=== PATIENT | female | born 1955 ===

== ENCOUNTER 2017-10-17 12:12 | Emergency (ER) | payer MEDICAID ==
[2017-10-17 12:46] VITALS: BP 161/70; PULSE 79; RESP 18; TEMP 98.9; O2SAT 98
--- NOTE | 2017-10-17 13:22 | ED PDOC ---
HPI: Back Time Seen by Provider: 10/17/17 13:00 Chief Complaint (Nursing): Back Pain Chief Complaint (Provider): back pain History Per: Patient (62 y/o female here with ongoing back pain and right leg shooting pain since fall in summer. Patient states she was seen in ED in past with xry evaluation negative. Has seen pmd and given flexeril ibuprofen but notes persistent pain. ) Past Medical History Reviewed: Historical Data, Nursing Documentation, Vital Signs Vital Signs: Last Vital Signs Temp 98.9 F 10/17/17 12:44 Pulse 79 10/17/17 12:44 Resp 18 10/17/17 12:44 BP 161/70 H 10/17/17 12:44 Pulse Ox 98 10/17/17 12:44 - Medical History PMH: Back Problems, Schizophrenia - Surgical History Surgical History: Cholecystectomy (09/2017) - Family History Family History: States: No Known Family Hx - Immunization History Hx Influenza Vaccination: Yes - Home Medications Home Medications: Ambulatory Orders Medication Instructions Recorded Naproxen 500 mg PO BID PRN #14 tablet 10/17/17 diaZEpam [Valium] 5 mg PO Q6 PRN #5 tab 10/17/17 - Allergies Allergies/Adverse Reactions: Allergies Allergy/AdvReac Type Severity Reaction Status Date / Time No Known Allergies Allergy Verified 10/17/17 12:44 Review of Systems ROS Statement: Except As Marked, All Systems Reviewed And Found Negative Musculoskeletal: Positive for: Back Pain Physical Exam - Reviewed Nursing Documentation Reviewed: Yes Vital Signs Reviewed: Yes - Physical Exam Appears: Positive for: Well, Non-toxic, No Acute Distress Head Exam: Positive for: ATRAUMATIC, NORMAL INSPECTION, NORMOCEPHALIC Skin: Positive for: Normal Color, Warm, DRY Eye Exam: Positive for: EOMI, Normal appearance, PERRL ENT: Positive for: Normal ENT Inspection Neck: Positive for: Normal, Painless ROM Cardiovascular/Chest: Positive for: Regular Rate, Rhythm Respiratory: Positive for: CNT, Normal Breath Sounds Gastrointestinal/Abdominal: Positive for: Normal Exam, Bowel Sounds, Soft Back: Positive for: Normal Inspection, Vertebral Tenderness (right paralumbar tenderness; (-) sciatic raise.) Extremity: Positive for: Normal ROM Neurologic/Psych: Positive for: Alert, Oriented - ECG O2 Sat by Pulse Oximetry: 98 - Progress ED Course And Treament: Patient notes pain anterior leg right with walking. Will write valium/naproxen and advise f/u with pmd Disposition - Clinical Impression Clinical Impression: Back strain, Johns splints - Patient ED Disposition Is Patient to be Admitted: No - Disposition Disposition: Routine/Home Disposition Time: 13:22 Condition: FAIR Prescriptions: diaZEpam [Valium] 5 mg PO Q6 PRN #5 tab PRN Reason: Muscle Spasm Naproxen 500 mg PO BID PRN #14 tablet PRN Reason: Pain, Moderate (4-7) Instructions: Johns Splints, Muscle Strain, Low Back Pain (DC)
== END 2017-10-17 14:14 | disposition home or self-care (01) ==
LOC: EDBD 12:12 → H.ER 12:12
DX: M54.9 Dorsalgia, unspecified (principal); M76.811 Anterior tibial syndrome, right leg

== ENCOUNTER 2018-02-06 13:22 | Emergency (ER) | payer MEDICAID ==
[2018-02-06 13:23] VITALS: BMI 26.4
[2018-02-06 13:56] VITALS: O2SAT 99
--- NOTE | 2018-02-06 16:00 | ED PDOC ---
HPI: Back Time Seen by Provider: 02/06/18 14:33 Chief Complaint (Nursing): Back Pain Chief Complaint (Provider): Back Pain History Per: Patient History/Exam Limitations: no limitations Onset/Duration Of Symptoms: Hrs Current Symptoms Are (Timing): Still Present Quality Of Discomfort: "Pain" Additional Complaint(s): 61 y/o female with a history of sciatica presents to the ED for lower back pain. Patient reports the pain began last night and worsened today. She states she has chronic lower back pain; states she was diagnosed with sciatica on the right side 6 years ago. Denies taking any medication prior to arrival for her symptoms. She denies chest pain, abdominal pain, nausea, vomiting, SOB, cough, urinary symptoms, incontinence, saddle anesthesia, fever, chills, weakness, numbness, recent trauma, or falls. Of note, patient had elevated blood pressure in triage. She denies a history of HTN and states her blood pressure normally elevates when she is in the hospital/ being evaluated. (-) headache (-) visual changes (-) dizziness (-) palpitations PMD: Dr. Ramirez Past Medical History Reviewed: Historical Data, Nursing Documentation, Vital Signs Vital Signs: Last Vital Signs Temp 97.0 F L 02/06/18 13:54 Pulse 79 02/06/18 13:54 Resp 18 02/06/18 13:54 BP 190/91 H 02/06/18 13:54 Pulse Ox 99 02/06/18 13:54 - Medical History PMH: Anxiety, Arthritis, Asthma, Back Problems, Bipolar Disorder, Gastritis Other PMH: sciatica - Surgical History Surgical History: Cholecystectomy (09/2017) - Family History Family History: States: Unknown Family Hx - Social History Current smoker - smoking cessation education provided: No Ex-Smoker (has not smoked in the last 12 months): No Alcohol: None Drugs: Denies - Home Medications Home Medications: Ambulatory Orders Medication Instructions Recorded Benztropine [Cogentin] 1 mg PO BID 08/15/16 Divalproex [Depakote DR] 500 mg PO BID 08/15/16 FLUoxetine [Prozac] 20 mg PO BID 08/15/16 fluPHENAZine [Prolixin] 2.5 mg PO BID 08/15/16 Albuterol HFA [Ventolin HFA 90 1 puff IH Q4 PRN #1 inh 12/01/16 mcg/actuation (8 g)] Ibuprofen [Motrin] 600 mg PO Q6 PRN #15 tab 04/03/17 oxyCODONE/Acetaminophen [Percocet 1 tab PO Q4 PRN 09/13/17 5/325 mg Tab] Polyethylene Glycol 3350 [Miralax] 17 gm PO DAILY PRN #1 bottle 09/18/17 traMADol [Ultram] 50 mg PO TID PRN #15 tab 09/18/17 Naproxen 500 mg PO BID PRN #14 tablet 10/17/17 diaZEpam [Valium] 5 mg PO Q6 PRN #5 tab 10/17/17 Naproxen 500 mg PO BID PRN #20 ect 11/24/17 Polyethylene Glycol 3350 [Miralax] 17 gm PO DAILY 5 Days ml 11/24/17 Meloxicam [Mobic] 15 mg PO DAILY PRN #14 tab 02/06/18 Methocarbamol [Robaxin] 500 mg PO BID PRN #10 tab 02/06/18 - Allergies Allergies/Adverse Reactions: Allergies Allergy/AdvReac Type Severity Reaction Status Date / Time No Known Allergies Allergy Verified 10/17/17 12:44 Review of Systems ROS Statement: Except As Marked, All Systems Reviewed And Found Negative Constitutional: Negative for: Fever, Chills, Other (recent trauma or fall) Cardiovascular: Negative for: Chest Pain Respiratory: Negative for: Cough, Shortness of Breath Gastrointestinal: Negative for: Nausea, Vomiting, Abdominal Pain Genitourinary Female: Negative for: Incontinence, Other (urinary symptoms) Musculoskeletal: Positive for: Back Pain (lower radiating to lower right extremity) Neurological: Negative for: Weakness, Numbness, Other (saddle anesthesia) Physical Exam - Reviewed Nursing Documentation Reviewed: Yes Vital Signs Reviewed: Yes - Physical Exam Comments: GENERAL APPEARANCE: Patient is awake, alert, oriented x 3, in no acute distress. Resting comfortably, ambulatory in ED. SKIN: Warm, dry; (-) cyanosis. EYES: (-) conjunctival pallor. NECK: Supple, FROM (-) tenderness, (-) stiffness, (-) lymphadenopathy. CHEST AND RESPIRATORY: (-) rales, (-) rhonchi, (-) wheezes; breath sounds equal bilaterally. Speaking in full sentences. HEART AND CARDIOVASCULAR: (-) irregularity; (-) murmur, (-) gallop. ABDOMEN AND GI: Soft; (-) tenderness; (-) palpable mass (-) distention (-) guarding. BACK: (+) right paralumbar and sciatic notch tenderness, (-) direct bony tenderness, (-) deformity (+) straight leg on right is 15 degrees (-) on left. ( -) CVA tenderness EXTREMITIES: (+) steady gait (-) deformity. Distal pulses good bilaterally. NEURO AND PSYCH: Mental status as above. Intact sensation bilaterally; normal strength in extension of the knees, plantar and dorsiflexion of the toes. (-) distal NV deficit - ECG O2 Sat by Pulse Oximetry: 99 (RA) Pulse Ox Interpretation: Normal Medical Decision Making Medical Decision Making: Time: 13:54 Impression: acute on chronic back pain/sciatica, elevated BP reading Plan: * Naproxen 500 mg PO * Ultram 50 mg PO * Valium 5 mg PO (Patient is not driving home) * Re-evaluation 1650 Repeat HR: 77 Repeat BP: 154/82 Patient advised to follow up with PMD for further evaluation of blood pressure. On re-evaluation, patient reports improvement of symptoms. Ambulatory in ED with a steady, unassisted gait. On exam, patient remains AAOx3, in no acute distress. Neck is supple, lungs CTA, cardiac RRR, abdomen is soft and non-tender , neuro exam shows no focal findings. VSS, stable for discharge. Diagnostic results d/w the patient in great detail. Dx of acute on chronic back pain, sciatica, elevated blood pressure d/w the patient. Based on history, exam and diagnostic results plan will be for discharge and outpatient follow up. Advised to follow up with primary care physician in 1-2 days without fail. Advised to take medication as prescribed. Return to the emergency room at any time for any new or worsening symptoms. Patient states she fully agrees with and understands discharge instructions. States that she agrees with the plan and disposition. Verbalized and repeated discharge instructions and plan. I have given the patient opportunity to ask any additional questions. Scribe Attestation: Documented by Adam Vizcaino acting as a scribe ELLE Ovalle MD Attestation: All medical record entries made by the Scribe were at my direction and personally dictated by me. I have reviewed the chart and agree that the record accurately reflects my personal performance of the history, physical exam, medical decision making, and the department course for this patient. I have also personally directed, reviewed, and agree with the discharge instructions and disposition. Disposition - Clinical Impression Clinical Impression: Low back pain, Sciatica, Elevated blood pressure reading - Patient ED Disposition Is Patient to be Admitted: No Counseled Patient/Family Regarding: Diagnosis, Need For Followup, Rx Given - Disposition Disposition: Routine/Home Disposition Time: 16:49 Condition: IMPROVED Additional Instructions: FOLLOW UP WITH PMD FOR ADDITIONAL PAIN MANAGEMENT AND EVALUATION OF BLOOD PRESSURE. RETURN TO ED WITH ANY NEW OR WORSENING SYMPTOMS. Prescriptions: Meloxicam [Mobic] 15 mg PO DAILY PRN #14 tab PRN Reason: Pain, Moderate (4-7) Methocarbamol [Robaxin] 500 mg PO BID PRN #10 tab PRN Reason: Muscle Spasm Instructions: Sciatica, High Blood Pressure in Adults, Low Back Pain (DC), Prehypertension, Sciatica Exercises, Hypertension (ED) Forms: [employer] (Swedish) Print Language: UZBEK - POA Present On Arrival: None
[2018-02-06] MEDS ORDERED: Naproxen 500 MG TAB PO ONE (16:03)
[2018-02-06] MEDS: Naproxen 500 MG TAB PO STA (16:05)
[2018-02-06 17:05] VITALS: BP 154/82; PULSE 77; RESP 15; TEMP 98.2
== END 2018-02-06 17:05 | disposition home or self-care (01) ==
LOC: H.ER 13:22
DX: M54.5 Low back pain (principal); M54.31 Sciatica, right side; I10 Essential (primary) hypertension

== ENCOUNTER 2018-05-02 06:36 | Emergency (ER) | payer MEDICAID ==
[2018-05-02 06:36] VITALS: BMI 26.4
[2018-05-02 06:50] VITALS: BP 125/74; PULSE 75; RESP 16; TEMP 98.6; O2SAT 98
--- NOTE | 2018-05-02 07:47 | ED PDOC ---
HPI: General Adult Time Seen by Provider: 05/02/18 07:00 Chief Complaint (Nursing): Abnormal Skin Integrity Chief Complaint (Provider): Rash, sore throat History Per: Patient History/Exam Limitations: no limitations Onset/Duration Of Symptoms: Days (3) Have you had recent travel within the past 21 days to any of the following countries: [place], [place], [place] or [place]?: No Current Symptoms Are (Timing): Still Present Additional History Per: Patient Additional Complaint(s): 62yo female, history of anxiety, depression and schizophrenia, comes to ER for evaluation of an itchy rash present diffusely on her body x 3 days as well as a sore throat x 3 days. Patient denies using any new lotions, soaps, or detergent and states she did not take any medications for her rash. She was seen by her PMD Dr. Peraza at [facility] and states she has to follow up with an rear load truck driver for testing. she states this rash resolved at this time.. She denies any fever, chills, chest pain, shortness of breath, and offers no other complaints. Past Medical History Reviewed: Historical Data, Nursing Documentation, Vital Signs Vital Signs: Last Vital Signs Temp 98.6 F 05/02/18 06:46 Pulse 75 05/02/18 06:46 Resp 16 05/02/18 06:46 BP 125/74 05/02/18 06:46 Pulse Ox 98 05/02/18 08:52 - Medical History PMH: Anxiety, Arthritis, Asthma, Back Problems, Bipolar Disorder, Depression, Gastritis, Schizophrenia Denies: Kidney Stones, Chronic Kidney Disease - Surgical History Surgical History: Cholecystectomy (09/2017) Denies: Appendectomy - Family History Family History: States: No Known Family Hx - Living Arrangements Living Arrangements: Alone - Immunization History Hx Influenza Vaccination: Yes - Home Medications Home Medications: Ambulatory Orders Medication Instructions Recorded Benztropine [Cogentin] 1 mg PO BID 08/15/16 Divalproex [Depakote DR] 500 mg PO BID 08/15/16 FLUoxetine [Prozac] 20 mg PO BID 08/15/16 fluPHENAZine [Prolixin] 2.5 mg PO BID 08/15/16 Albuterol HFA [Ventolin HFA 90 1 puff IH Q4 PRN #1 inh 12/01/16 mcg/actuation (8 g)] Ibuprofen [Motrin] 600 mg PO Q6 PRN #15 tab 04/03/17 oxyCODONE/Acetaminophen [Percocet 1 tab PO Q4 PRN 09/13/17 5/325 mg Tab] Polyethylene Glycol 3350 [Miralax] 17 gm PO DAILY PRN #1 bottle 09/18/17 traMADol [Ultram] 50 mg PO TID PRN #15 tab 09/18/17 Naproxen 500 mg PO BID PRN #14 tablet 10/17/17 diaZEpam [Valium] 5 mg PO Q6 PRN #5 tab 10/17/17 Naproxen 500 mg PO BID PRN #20 ect 11/24/17 Polyethylene Glycol 3350 [Miralax] 17 gm PO DAILY 5 Days ml 11/24/17 Meloxicam [Mobic] 15 mg PO DAILY PRN #14 tab 02/06/18 Methocarbamol [Robaxin] 500 mg PO BID PRN #10 tab 02/06/18 - Allergies Allergies/Adverse Reactions: Allergies Allergy/AdvReac Type Severity Reaction Status Date / Time No Known Allergies Allergy Verified 05/02/18 06:45 Review of Systems ROS Statement: Except As Marked, All Systems Reviewed And Found Negative Constitutional: Negative for: Fever, Chills ENT: Positive for: Throat Pain Cardiovascular: Negative for: Chest Pain Respiratory: Positive for: Cough. Negative for: Shortness of Breath Skin: Positive for: Rash Physical Exam - Reviewed Nursing Documentation Reviewed: Yes Vital Signs Reviewed: Yes - Physical Exam Appears: Positive for: Non-toxic, No Acute Distress Head Exam: Positive for: ATRAUMATIC, NORMAL INSPECTION, NORMOCEPHALIC Skin: Positive for: Warm, Rash (healing, crusty rash noted diffusely to bilateral forearms and on trunk. ) Eye Exam: Positive for: EOMI, Normal appearance, PERRL ENT: Positive for: Pharyngeal Erythema (minimal). Negative for: Tonsillar Exudate, Tonsillar Swelling Neck: Positive for: Normal, Painless ROM, Supple Cardiovascular/Chest: Positive for: Regular Rate, Rhythm Respiratory: Positive for: Normal Breath Sounds Gastrointestinal/Abdominal: Positive for: Normal Exam Back: Positive for: Normal Inspection Extremity: Positive for: Normal ROM. Negative for: Pedal Edema, Deformity Neurologic/Psych: Positive for: Alert, Oriented. Negative for: Motor/Sensory Deficits - ECG O2 Sat by Pulse Oximetry: 98 (RA) Pulse Ox Interpretation: Normal Medical Decision Making Medical Decision Making: Impression: Urticaria, sore throat rule out strep Plan: * Rapid strep Time: 0851 Rapid strep test is negative. pt states anjel rash doesnt bother her and is healing she will follow up as outpt. Patient informed of findings and will be discharged home. Patient instructed to follow up with rear load truck driver as scheduled and to follow up with PMD in 2-3 days. Scribe Attestation: Documented by Aubree Hummel, acting as a scribe for Jamel Way MD. Provider Scribe Attestation: All medical record entries made by the Scribe were at my direction and personally dictated by me. I have reviewed the chart and agree that the record accurately reflects my personal performance of the history, physical exam, medical decision making, and the department course for this patient. I have also personally directed, reviewed, and agree with the discharge instructions and disposition. Disposition - Clinical Impression Clinical Impression: Rash - Patient ED Disposition Is Patient to be Admitted: No Counseled Patient/Family Regarding: Studies Performed, Diagnosis, Need For Followup - Disposition Disposition: Routine/Home Disposition Time: 08:30 Condition: IMPROVED Additional Instructions: follow up with your primary doctor in 1-2 days return to the ED with any worsening or concerning symptoms Instructions: Skin Rash (DC) Forms: [employer] (Guyanese)
== END 2018-05-02 09:46 | disposition home or self-care (01) ==
LOC: H.ER 06:36
DX: L50.9 Urticaria, unspecified (principal)

== ENCOUNTER 2018-06-17 07:19 | Emergency (ER) | payer MEDICAID ==
[2018-06-17 07:19] VITALS: BMI 26.4
[2018-06-17 07:34] VITALS: PULSE 79; RESP 18; TEMP 98.2; O2SAT 97
--- NOTE | 2018-06-17 07:50 | ED PDOC ---
HPI: General Adult Time Seen by Provider: 06/17/18 07:26 Chief Complaint (Provider): Rash History Per: Patient History/Exam Limitations: no limitations Onset/Duration Of Symptoms: Days Have you had recent travel within the past 21 days to any of the following countries: [place], [place], [place] or [place]?: No Current Symptoms Are (Timing): Still Present Additional History Per: Patient Additional Complaint(s): 62yo female, history of anxiety, depression and schizophrenia, comes to ER for evaluation of an itchy rash present diffusely on her body x 3 days. Patient denies using any new lotions, soaps, or detergent and states she did not take any medications for her rash. She also denies any bug bites or other environmental factors contributing to the rash. She denies any fever, chills, chest pain, shortness of breath, throat swelling, nausea, vomiting or diarrhea. She states she has not followed up with an business analytics faculty member. No other complaints. PMD: [facility] Past Medical History Reviewed: Historical Data, Nursing Documentation, Vital Signs Vital Signs: Last Vital Signs Temp 98.2 F 06/17/18 07:33 Pulse 79 06/17/18 07:33 Resp 18 06/17/18 07:33 BP 143/80 06/17/18 07:33 Pulse Ox 97 06/17/18 07:33 - Medical History PMH: Anxiety, Arthritis, Asthma, Back Problems, Bipolar Disorder, Depression, Gastritis, Schizophrenia Denies: Kidney Stones, Chronic Kidney Disease - Surgical History Surgical History: Cholecystectomy (09/2017) Denies: Appendectomy - Family History Family History: States: No Known Family Hx - Social History Current smoker - smoking cessation education provided: No Alcohol: None Drugs: Denies - Immunization History Hx Influenza Vaccination: Yes - Home Medications Home Medications: Ambulatory Orders Medication Instructions Recorded Benztropine [Cogentin] 1 mg PO BID 08/15/16 Divalproex [Depakote DR] 500 mg PO BID 08/15/16 FLUoxetine [Prozac] 20 mg PO BID 08/15/16 fluPHENAZine [Prolixin] 2.5 mg PO BID 08/15/16 Albuterol HFA [Ventolin HFA 90 1 puff IH Q4 PRN #1 inh 12/01/16 mcg/actuation (8 g)] Ibuprofen [Motrin] 600 mg PO Q6 PRN #15 tab 04/03/17 oxyCODONE/Acetaminophen [Percocet 1 tab PO Q4 PRN 09/13/17 5/325 mg Tab] Polyethylene Glycol 3350 [Miralax] 17 gm PO DAILY PRN #1 bottle 09/18/17 traMADol [Ultram] 50 mg PO TID PRN #15 tab 09/18/17 Naproxen 500 mg PO BID PRN #14 tablet 10/17/17 diaZEpam [Valium] 5 mg PO Q6 PRN #5 tab 10/17/17 Naproxen 500 mg PO BID PRN #20 ect 11/24/17 Polyethylene Glycol 3350 [Miralax] 17 gm PO DAILY 5 Days ml 11/24/17 Meloxicam [Mobic] 15 mg PO DAILY PRN #14 tab 02/06/18 Methocarbamol [Robaxin] 500 mg PO BID PRN #10 tab 02/06/18 DiphenhydrAMINE [Benadryl] 25 mg PO TID PRN 5 Days cap 06/17/18 - Allergies Allergies/Adverse Reactions: Allergies Allergy/AdvReac Type Severity Reaction Status Date / Time No Known Allergies Allergy Verified 05/02/18 06:45 Review of Systems ROS Statement: Except As Marked, All Systems Reviewed And Found Negative Constitutional: Negative for: Fever, Sweats Eyes: Negative for: Eyelid Inflammation ENT: Negative for: Throat Swelling Cardiovascular: Negative for: Chest Pain Respiratory: Negative for: Shortness of Breath Gastrointestinal: Negative for: Vomiting Skin: Positive for: Rash Physical Exam - Reviewed Nursing Documentation Reviewed: Yes Vital Signs Reviewed: Yes - Physical Exam Appears: Positive for: Non-toxic, No Acute Distress Head Exam: Positive for: ATRAUMATIC, NORMAL INSPECTION, NORMOCEPHALIC Skin: Positive for: Normal Color, Warm, Dry Eye Exam: Positive for: Normal appearance, EOMI, PERRL ENT: Positive for: Normal ENT Inspection Neck: Positive for: Normal, Supple Cardiovascular/Chest: Positive for: Regular Rate, Rhythm Respiratory: Positive for: Normal Breath Sounds. Negative for: Wheezing Gastrointestinal/Abdominal: Positive for: Normal Exam, Soft Back: Positive for: Normal Inspection, Other (area of excoriation noted to mid b ack with minimal erythema; no edema, induration or fluctuance noted.). Negative for: L CVA Tenderness, R CVA Tenderness, Vertebral Tenderness Extremity: Positive for: Normal ROM, Other (excoriations noted to bilateral forearms with surrounding minimal erythema; no edema, induration or fluctuance noted). Negative for: Pedal Edema Neurologic/Psych: Positive for: Alert, Oriented. Negative for: Motor/Sensory Deficits - ECG O2 Sat by Pulse Oximetry: 97 (RA) Pulse Ox Interpretation: Normal - Progress ED Course And Treament: 750: Stable. Feels better. AAOx3. Pain free. Medical Decision Making Medical Decision Making: Impression: Rash Plan: * Benadryl 25mg PO Patient to be discharged home with prescription for Benadryl. Patient instructed to f/u with PMD as well as business analytics faculty member. Scribe Attestation: Documented by Aubree Hummel, acting as a scribe for Manuelito Irby MD. Provider Scribe Attestation: All medical record entries made by the Scribe were at my direction and personally dictated by me. I have reviewed the chart and agree that the record accurately reflects my personal performance of the history, physical exam, medical decision making, and the department course for this patient. I have also personally directed, reviewed, and agree with the discharge instructions and disposition. Disposition - Clinical Impression Clinical Impression: Allergic reaction - Patient ED Disposition Is Patient to be Admitted: No Counseled Patient/Family Regarding: Diagnosis, Need For Followup, Rx Given - Disposition Referrals: Vani Akins MD [Staff Provider] - 06/19/18 Disposition: Routine/Home Disposition Time: 07:51 Condition: STABLE Additional Instructions: Return if not better in 3 days. Prescriptions: DiphenhydrAMINE [Benadryl] 25 mg PO TID PRN 5 Days cap PRN Reason: Itching / Pruritus Instructions: Skin Rash (DC)
[2018-06-17 08:31] VITALS: BP 154/92
== END 2018-06-17 08:31 | disposition home or self-care (01) ==
LOC: H.ER 07:19
DX: R21 Rash and other nonspecific skin eruption (principal)

== ENCOUNTER 2018-09-10 09:30 | Emergency (ER) | payer MEDICAID ==
[2018-09-10 09:35] VITALS: BMI 24.0
[2018-09-10 09:37] VITALS: O2SAT 98
--- NOTE | 2018-09-10 10:06 | ED PDOC ---
Lower Extremity Pain/Injury Time Seen by Provider: 09/10/18 09:50 Chief Complaint (Nursing): Lower Extremity Problem/Injury History Per: Patient Onset/Duration Of Symptoms: Days (2) Current Symptoms Are (Timing): Still Present Severity: Moderate Additional Complaint(s): Tripped and fell yesterday with injury to left knee. Has been able to ambulate. Past Medical History Vital Signs: Last Vital Signs Temp 97.8 F 09/10/18 09:36 Pulse 77 09/10/18 09:36 Resp 18 09/10/18 09:36 BP 138/84 09/10/18 09:36 Pulse Ox 98 09/10/18 09:36 - Medical History PMH: Anxiety, Arthritis, Asthma, Back Problems, Bipolar Disorder, Depression, Gastritis, Schizophrenia Denies: Kidney Stones, Chronic Kidney Disease - Surgical History Surgical History: Cholecystectomy (09/2017) Denies: Appendectomy - Family History Family History: States: Unknown Family Hx - Immunization History Hx Influenza Vaccination: Yes - Home Medications Home Medications: Ambulatory Orders Medication Instructions Recorded Benztropine [Cogentin] 1 mg PO BID 08/15/16 Divalproex [Depakote DR] 500 mg PO BID 08/15/16 FLUoxetine [Prozac] 20 mg PO BID 08/15/16 fluPHENAZine [Prolixin] 2.5 mg PO BID 08/15/16 Albuterol HFA [Ventolin HFA 90 1 puff IH Q4 PRN #1 inh 12/01/16 mcg/actuation (8 g)] Ibuprofen [Motrin] 600 mg PO Q6 PRN #15 tab 04/03/17 oxyCODONE/Acetaminophen [Percocet 1 tab PO Q4 PRN 09/13/17 5/325 mg Tab] Polyethylene Glycol 3350 [Miralax] 17 gm PO DAILY PRN #1 bottle 09/18/17 traMADol [Ultram] 50 mg PO TID PRN #15 tab 09/18/17 Naproxen 500 mg PO BID PRN #14 tablet 10/17/17 diaZEpam [Valium] 5 mg PO Q6 PRN #5 tab 10/17/17 Naproxen 500 mg PO BID PRN #20 ect 11/24/17 Polyethylene Glycol 3350 [Miralax] 17 gm PO DAILY 5 Days ml 11/24/17 Meloxicam [Mobic] 15 mg PO DAILY PRN #14 tab 02/06/18 Methocarbamol [Robaxin] 500 mg PO BID PRN #10 tab 02/06/18 DiphenhydrAMINE [Benadryl] 25 mg PO TID PRN 5 Days cap 06/17/18 Naproxen [Naprosyn] 500 mg PO Q12H #20 tab 09/10/18 - Allergies Allergies/Adverse Reactions: Allergies Allergy/AdvReac Type Severity Reaction Status Date / Time No Known Allergies Allergy Verified 05/02/18 06:45 Review of Systems Constitutional: Negative for: Fever Musculoskeletal: Positive for: Other (Knee pain) Neurological: Negative for: Weakness, Numbness Physical Exam - Physical Exam Appears: Positive for: Non-toxic, No Acute Distress Skin: Positive for: Normal Color, Warm, DRY Extremity: Positive for: Other (Left knee, abrasion with tenderness over patella FROM) - ECG O2 Sat by Pulse Oximetry: 98 Disposition - Clinical Impression Clinical Impression: Knee contusion - Patient ED Disposition Is Patient to be Admitted: No Counseled Patient/Family Regarding: Studies Performed, Diagnosis, Need For Followup, Rx Given - Disposition Referrals: Viktoria Malcolm MD [Staff Provider] - Disposition: Routine/Home Disposition Time: 11:35 Condition: FAIR Prescriptions: Naproxen [Naprosyn] 500 mg PO Q12H #20 tab Instructions: Contusion (DC) Forms: [employer] ([place])
[2018-09-10 12:02] VITALS: BP 128/78; PULSE 78; RESP 19; TEMP 97.6
--- NOTE | 2018-09-10 12:38 | RAD ---
Date of service: 09/10/2018 PROCEDURE: Left Knee Radiographs. HISTORY: Pain. COMPARISON: None. FINDINGS: BONES: Bone alignment and mineralization are normal. There is no acute displaced fracture or bone destruction. JOINTS: There is mild tricompartmental degenerative osteoarthrosis with reduced joint spaces, marginal osteophytes and tibial spiking, worse in the medial compartment. JOINT EFFUSION: None. OTHER FINDINGS: None. IMPRESSION: No acute fracture or dislocation. Mild tricompartmental degenerative osteoarthrosis, worse in the medial compartment.
== END 2018-09-10 12:03 | disposition home or self-care (01) ==
LOC: H.ER 09:30
DX: S80.02XA Contusion of left knee, initial encounter (principal); Z86.59 Personal history of other mental and behavioral disorders; J45.909 Unspecified asthma, uncomplicated

== ENCOUNTER 2018-09-22 09:42 | Emergency (ER) | payer MEDICAID ==
[2018-09-22 09:53] VITALS: BMI 26.4
[2018-09-22 11:14] LABS: BASO # 0.1 K/uL (0.0-0.2); EOS # 0.2 K/uL (0.0-0.7); EOS % 2.3 % (0.0-4.0); HEMOGLOBIN 12.6 g/dL (12.0-16.0); LYMPH # 2.4 K/uL (1.0-4.3); LYMPH % 28.2 % (20.0-40.0); MEAN CELL VOLUME 83.5 fl (81.0-99.0); MEAN CORPUSCULAR HEMOGLOBIN 27.6 pg (27.0-31.0); MEAN CORPUSCULAR HGB CONC 33.1 g/dL (33.0-37.0); MEAN PLATELET VOLUME 9.8 fl (7.2-11.7); MONO # 0.8 K/uL (0.0-0.8); MONO % 8.8 % (0.0-10.0); NEUT # 5.1 K/uL (1.8-7.0); NEUT % 59.7 % (50.0-75.0); RBC 4.55 Mil/uL (3.80-5.20); RED CELL DISTRIBUTION WIDTH 14.3 % (11.5-14.5); WHITE BLOOD COUNT 8.6 K/uL (4.8-10.8)
[2018-09-22 11:31] LABS: PARTIAL THROMBOPLASTIN TIME 40.3 Seconds (25.6-37.1); PROTHROMBIN TIME 11.4 Seconds (9.8-13.1)
[2018-09-22 11:36] LABS: BLOOD UREA NITROGEN 18 mg/dl (7-17)
[2018-09-22 11:37] LABS: ALBUMIN 4.5 g/dL (3.5-5.0); CALCIUM 9.5 mg/dL (8.4-10.2); GFR NON-AFRICAN AMERICAN > 60
[2018-09-22 11:38] LABS: ALB/GLOB RATIO 1.2 (1.0-2.1); ALT/SGPT 21 U/L (9-52); AST/SGOT 34 U/L (14-36); LIPASE 41 U/L (23-300)
[2018-09-22 12:05] LABS: URINE BILIRUBIN NEGATIVE (NEGATIVE); URINE CLARITY Clear (Clear); URINE COLOR YELLOW (YELLOW); URINE GLUCOSE (UA) NEGATIVE (NEGATIVE)
[2018-09-22 12:06] LABS: URINE BLOOD NEGATIVE (NEGATIVE); URINE LEUKOCYTE ESTERASE MOD Leu/uL (Negative); URINE PROTEIN NEGATIVE (NEGATIVE); URINE UROBILINOGEN 0.2-1.0 mg/dL (0.2-1.0)
[2018-09-22 12:07] LABS: SQUAMOUS EPITHIAL 1 /hpf (0-5); URINE BACTERIA RARE (<OCC)
--- NOTE | 2018-09-22 12:23 | US ---
Date of service: 09/22/2018 HISTORY: Epigastric pain COMPARISON: Comparison made with prior abdominal ultrasound 08/10/2017. TECHNIQUE: Sonographic evaluation of the right upper quadrant of the abdomen. FINDINGS: LIVER: Measures 17.6 cm in length. Normal echogenicity of the liver parenchyma. No mass. No intrahepatic bile duct dilatation. GALLBLADDER: Cholecystectomy. No reported sonographic Rodríguez sign COMMON BILE DUCT: Measures 5.0 mm. No stones. No dilatation. PANCREAS: Unremarkable as visualized. No mass. No ductal dilatation. RIGHT KIDNEY: Measures 9.2 x 4.6 x 4.5 cm in length. Normal echogenicity. No calculus, mass, or hydronephrosis. AORTA: No aneurysmal dilatation. IVC: Unremarkable. OTHER FINDINGS: None . IMPRESSION: Cholecystectomy.
--- NOTE | 2018-09-22 14:10 | ED PDOC ---
HPI: Abdomen Time Seen by Provider: 09/22/18 10:19 Chief Complaint (Nursing): Abdominal Pain Chief Complaint (Provider): Abdominal Pain History Per: Patient History/Exam Limitations: no limitations Onset/Duration Of Symptoms: Days (x4) Current Symptoms Are (Timing): Still Present Location Of Pain/Discomfort: Epigastric Associated Symptoms: Constipation. denies: Nausea, Vomiting, Diarrhea Additional Complaint(s): 62 year old female with a past medical history of gastritis, depression, and arthritis who is presenting to the ED for evaluation of epigastric pain occurring after eating associated with constipation ongoing for the past 4 days. Patient denies any nausea, vomiting, or diarrhea and states that she takes Naproxen for left knee pain. She admits that her left knee still hurts when she kneels in christianity. Patient states that she was evaluated here s/p fall but was discharged after normal x-ray results. Patient offers no other medical complaints at this time. PMD: [place] Past Medical History Reviewed: Historical Data, Nursing Documentation, Vital Signs Vital Signs: Last Vital Signs Temp 97.8 F 09/22/18 09:51 Pulse 78 09/22/18 09:51 Resp BP 142/85 09/22/18 09:51 Pulse Ox 96 09/22/18 09:51 - Medical History PMH: Anxiety, Arthritis, Asthma, Back Problems, Bipolar Disorder, Depression, Gastritis, Schizophrenia Denies: Kidney Stones, Chronic Kidney Disease - Surgical History Surgical History: Cholecystectomy Denies: Appendectomy - Family History Family History: States: Unknown Family Hx - Social History Current smoker - smoking cessation education provided: No Alcohol: None Drugs: Denies - Immunization History Hx Influenza Vaccination: Yes - Home Medications Home Medications: Ambulatory Orders Medication Instructions Recorded Benztropine [Cogentin] 1 mg PO BID 08/15/16 Divalproex [Depakote DR] 500 mg PO BID 08/15/16 FLUoxetine [Prozac] 20 mg PO BID 08/15/16 fluPHENAZine [Prolixin] 2.5 mg PO BID 08/15/16 Albuterol HFA [Ventolin HFA 90 1 puff IH Q4 PRN #1 inh 12/01/16 mcg/actuation (8 g)] Ibuprofen [Motrin] 600 mg PO Q6 PRN #15 tab 04/03/17 oxyCODONE/Acetaminophen [Percocet 1 tab PO Q4 PRN 09/13/17 5/325 mg Tab] Polyethylene Glycol 3350 [Miralax] 17 gm PO DAILY PRN #1 bottle 09/18/17 traMADol [Ultram] 50 mg PO TID PRN #15 tab 09/18/17 Naproxen 500 mg PO BID PRN #14 tablet 10/17/17 diaZEpam [Valium] 5 mg PO Q6 PRN #5 tab 10/17/17 Naproxen 500 mg PO BID PRN #20 ect 11/24/17 Polyethylene Glycol 3350 [Miralax] 17 gm PO DAILY 5 Days ml 11/24/17 Meloxicam [Mobic] 15 mg PO DAILY PRN #14 tab 02/06/18 Methocarbamol [Robaxin] 500 mg PO BID PRN #10 tab 02/06/18 DiphenhydrAMINE [Benadryl] 25 mg PO TID PRN 5 Days cap 06/17/18 Naproxen [Naprosyn] 500 mg PO Q12H #20 tab 09/10/18 Famotidine [Pepcid] 20 mg PO BID #20 tab 09/22/18 - Allergies Allergies/Adverse Reactions: Allergies Allergy/AdvReac Type Severity Reaction Status Date / Time No Known Allergies Allergy Verified 09/22/18 09:58 Review of Systems ROS Statement: Except As Marked, All Systems Reviewed And Found Negative Gastrointestinal: Positive for: Abdominal Pain, Constipation. Negative for: Nausea, Vomiting, Diarrhea Musculoskeletal: Positive for: Leg Pain Physical Exam - Reviewed Nursing Documentation Reviewed: Yes Vital Signs Reviewed: Yes - Physical Exam Appears: Positive for: Non-toxic, No Acute Distress Head Exam: Positive for: ATRAUMATIC, NORMAL INSPECTION, NORMOCEPHALIC Skin: Positive for: Normal Color, Warm, DRY Eye Exam: Positive for: EOMI, Normal appearance, PERRL Cardiovascular/Chest: Positive for: Regular Rate, Rhythm. Negative for: Murmur Respiratory: Positive for: Normal Breath Sounds. Negative for: Respiratory Distress Gastrointestinal/Abdominal: Positive for: Soft, Tenderness (epigastric tenderness) Back: Positive for: Normal Inspection. Negative for: L CVA Tenderness, R CVA Tenderness Extremity: Positive for: Normal ROM, Other (left anterior knee pain, no induration, no erythema, no ecchymosis ). Negative for: Deformity, Swelling Neurologic/Psych: Positive for: Alert, Oriented. Negative for: Motor/Sensory Deficits - Laboratory Results Result Diagrams: 09/22/18 11:11 09/22/18 11:11 Lab Results: PT 11.4 Seconds (9.8-13.1) 09/22/18 11:11 INR 1.0 09/22/18 11:11 APTT 40.3 Seconds (25.6-37.1) H 09/22/18 11:11 Total Bilirubin 0.2 mg/dl (0.2-1.3) 09/22/18 11:11 AST 34 U/L (14-36) 09/22/18 11:11 ALT 21 U/L (9-52) 09/22/18 11:11 Alkaline Phosphatase 91 U/L (38-126) 09/22/18 11:11 Total Protein 8.4 G/DL (6.3-8.2) H 09/22/18 11:11 Albumin 4.5 g/dL (3.5-5.0) 09/22/18 11:11 Globulin 3.9 gm/dL (2.2-3.9) 09/22/18 11:11 Albumin/Globulin Ratio 1.2 (1.0-2.1) 09/22/18 11:11 Lipase 41 U/L (23-300) 09/22/18 11:11 Urine Color Yellow (YELLOW) 09/22/18 11:11 Urine Clarity Clear (Clear) 09/22/18 11:11 Urine pH 7.0 (5.0-8.0) 09/22/18 11:11 Ur Specific [place] 1.010 (1.003-1.030) 09/22/18 11:11 Urine Protein Negative mg/dL (NEGATIVE) 09/22/18 11:11 Urine Glucose (UA) Negative mg/dL (NEGATIVE) 09/22/18 11:11 Urine Ketones Negative mg/dL (NEGATIVE) 09/22/18 11:11 Urine Blood Negative (NEGATIVE) 09/22/18 11:11 Urine Nitrate Negative (NEGATIVE) 09/22/18 11:11 Urine Bilirubin Negative (NEGATIVE) 09/22/18 11:11 Urine Urobilinogen 0.2-1.0 mg/dL (0.2-1.0) 09/22/18 11:11 Ur Leukocyte Esterase Mod [place]/uL (Negative) 09/22/18 11:11 Urine RBC (Auto) 2 /hpf (0-3) 09/22/18 11:11 Urine Microscopic WBC 8 /hpf (0-5) H 09/22/18 11:11 Ur Squamous Epith Cells 1 /hpf (0-5) 09/22/18 11:11 Urine Bacteria Rare (<OCC) 09/22/18 11:11 - ECG O2 Sat by Pulse Oximetry: 96 (RA) Pulse Ox Interpretation: Normal Medical Decision Making Medical Decision Making: Time: 11: Plan: --EKG --CMP --Lipase --ED Urine Dipstick --CBC --Coags --Pepcid 20 mg IVP --Urine Culture --Urinalysis --Abdominal ultrasound Scribe Attestation: Documented by Surekha Mustafa, acting as a scribe for Sarah Tyler MD. Provider Scribe Attestation: All medical record entries made by the Scribe were at my direction and personally dictated by me. I have reviewed the chart and agree that the record accurately reflects my personal performance of the history, physical exam, medical decision making, and the department course for this patient. I have also personally directed, reviewed, and agree with the discharge instructions and disposition. Disposition - Clinical Impression Clinical Impression: Gastritis, Knee contusion - Disposition Condition: STABLE Additional Instructions: FOLLOW-UP WITH PMD WITHIN 2 DAYS FOR REEVALUATION. Prescriptions: Famotidine [Pepcid] 20 mg PO BID #20 tab Instructions: Gastritis, Contusion (DC) Forms: [employer] ([employer]) ([place]ian)
[2018-09-22 14:58] VITALS: PULSE 74; RESP 18; TEMP 98.4; O2SAT 97
[2018-09-22 15:01] VITALS: BP 120/71
--- NOTE | 2018-09-22 16:14 | RAD ---
Date of service: 09/22/2018 HISTORY: Constipation COMPARISON: Comparison made with plain film radiographs of the abdomen 02/23/2015 FINDINGS: BOWEL: Moderate amount of stool seen throughout the large bowel consistent patient's history of constipation. No evidence of gross free intraperitoneal air seen of the diaphragmatic surfaces BONES: Normal. OTHER FINDINGS: Cholecystectomy clips right upper quadrant of the abdomen. IMPRESSION: Findings consistent with constipation. Cholecystectomy.
--- NOTE | 2018-09-22 19:20 | CARD ---
APPROVED REPORT Date of service: 09/22/2018 EKG Measurement Heart [id number] <Conclusion> Normal sinus rhythm Normal ECG
== END 2018-09-22 15:04 | disposition home or self-care (01) ==
LOC: H.ER 09:42
DX: K29.70 Gastritis, unspecified, without bleeding (principal); M25.562 Pain in left knee; S80.02XD Contusion of left knee, subsequent encounter; W19.XXXD Unspecified fall, subsequent encounter; Z86.59 Personal history of other mental and behavioral disorders; J45.909 Unspecified asthma, uncomplicated; Z90.49 Acquired absence of other specified parts of digestive tract

== ENCOUNTER 2018-12-18 19:45 | Emergency (ER) | payer MEDICAID ==
[2018-12-18 19:45] VITALS: BMI 26.4
[2018-12-18 20:19] VITALS: TEMP 98.5; O2SAT 99
--- NOTE | 2018-12-18 21:06 | ED PDOC ---
HPI: Psych/Substance Abuse Time Seen by Provider: 12/18/18 20:42 Chief Complaint (Nursing): Psychiatric Evaluation Chief Complaint (Provider): hearing voices History Per: Patient History/Exam Limitations: no limitations Onset/Duration Of Symptoms: Days (2 weeks) Current Symptoms Are (Timing): Still Present Additional Complaint(s): 62 y/o female presents for evaluation of hearing voices x 2 weeks. Patient states symptoms started after stopping her Prolixin because it was taken off the market. Patient states she followed up with her psychiatrist and was told to co ntinue other psychiatric medications (Prozac, Depakote, Cogentin, Seroquel) and see how she does without the Prolixin. Patient states she feels "far away", and "not right". Patient cannot make out what the voices are saying, just hears them talking. Patient denies suicidal/homicidal ideations, acute physical complaints. Past Medical History Reviewed: Historical Data, Nursing Documentation, Vital Signs Vital Signs: Last Vital Signs Temp 98.5 F 12/18/18 20:18 Pulse 73 12/18/18 20:18 Resp 16 12/18/18 20:18 BP 176/102 H 12/18/18 20:18 Pulse Ox 99 12/18/18 20:18 - Medical History PMH: Anxiety, Arthritis, Asthma, Back Problems, Bipolar Disorder, Depression, Gastritis, Schizophrenia Denies: Kidney Stones, Chronic Kidney Disease - Surgical History Surgical History: Cholecystectomy Denies: Appendectomy - Family History Family History: States: Unknown Family Hx - Immunization History Hx Influenza Vaccination: Yes - Home Medications Home Medications: Ambulatory Orders Medication Instructions Recorded Benztropine [Cogentin] 1 mg PO BID 08/15/16 Divalproex [Depakote DR] 500 mg PO BID 08/15/16 FLUoxetine [Prozac] 20 mg PO BID 08/15/16 fluPHENAZine [Prolixin] 2.5 mg PO BID 08/15/16 Albuterol HFA [Ventolin HFA 90 1 puff IH Q4 PRN #1 inh 12/01/16 mcg/actuation (8 g)] Ibuprofen [Motrin] 600 mg PO Q6 PRN #15 tab 04/03/17 oxyCODONE/Acetaminophen [Percocet 1 tab PO Q4 PRN 09/13/17 5/325 mg Tab] Polyethylene Glycol 3350 [Miralax] 17 gm PO DAILY PRN #1 bottle 09/18/17 traMADol [Ultram] 50 mg PO TID PRN #15 tab 09/18/17 Naproxen 500 mg PO BID PRN #14 tablet 10/17/17 diaZEpam [Valium] 5 mg PO Q6 PRN #5 tab 10/17/17 Naproxen 500 mg PO BID PRN #20 ect 11/24/17 Polyethylene Glycol 3350 [Miralax] 17 gm PO DAILY 5 Days ml 11/24/17 Meloxicam [Mobic] 15 mg PO DAILY PRN #14 tab 02/06/18 Methocarbamol [Robaxin] 500 mg PO BID PRN #10 tab 02/06/18 DiphenhydrAMINE [Benadryl] 25 mg PO TID PRN 5 Days cap 06/17/18 Naproxen [Naprosyn] 500 mg PO Q12H #20 tab 09/10/18 Famotidine [Pepcid] 20 mg PO BID #20 tab 09/22/18 Polyethylene Glycol 3350 [Miralax] 1 tbs PO DAILY PRN #1 bottle 09/22/18 - Allergies Allergies/Adverse Reactions: Allergies Allergy/AdvReac Type Severity Reaction Status Date / Time No Known Allergies Allergy Verified 09/22/18 09:58 Review of Systems ROS Statement: Except As Marked, All Systems Reviewed And Found Negative Psych: Positive for: Psychosis (auditory hallucinations) Physical Exam - Reviewed Nursing Documentation Reviewed: Yes Vital Signs Reviewed: Yes - Physical Exam Appears: Positive for: Well, Non-toxic, No Acute Distress Head Exam: Positive for: ATRAUMATIC, NORMAL INSPECTION, NORMOCEPHALIC Skin: Positive for: Normal Color Eye Exam: Positive for: Normal appearance ENT: Positive for: Normal ENT Inspection Cardiovascular/Chest: Positive for: Regular Rate, Rhythm Respiratory: Positive for: Normal Breath Sounds Gastrointestinal/Abdominal: Positive for: Normal Exam Back: Positive for: Normal Inspection Extremity: Positive for: Normal ROM Neurological/Psych: Positive for: Awake, Alert, Oriented (x3) - ECG O2 Sat by Pulse Oximetry: 99 - Progress ED Course And Treament: -crisis eval Patient evaluated by abrasive worker; does not meet criteria for admission at this time as per Dr. Falcon. Recommends outpatient follow up Disposition - Clinical Impression Clinical Impression: Schizophrenia - Patient ED Disposition Is Patient to be Admitted: No Counseled Patient/Family Regarding: Diagnosis, Need For Followup - Disposition Disposition: Routine/Home Disposition Time: 22:30 Condition: STABLE Instructions: Schizophrenia
[2018-12-18 22:55] VITALS: BP 149/82; PULSE 70; RESP 17
== END 2018-12-18 22:39 | disposition home or self-care (01) ==
LOC: H.ER 19:45
DX: F20.9 Schizophrenia, unspecified (principal); Z86.59 Personal history of other mental and behavioral disorders; J45.909 Unspecified asthma, uncomplicated